=== PATIENT | male | born 1995 | race Two or more races ===

== ENCOUNTER 2020-05-17 13:34 | Emergency (ER) | payer BC, OTHER ==
[~2020-05-17] VITALS: Ht 182.9 cm; Wt 81.6 kg
[2020-05-17 13:47] VITALS: BP 152/78
[2020-05-17] MEDS ORDERED: IBUPROFEN 800 MG TAB PO ONE (15:15)
== END 2020-05-17 15:37 | disposition home or self-care (01) ==
LOC: ER 13:34
DX: S90.852A Superficial foreign body, left foot, initial encounter (principal); S90.851A Superficial foreign body, right foot, initial encounter; W45.8XXA Other foreign body or object entering through skin, initial encounter; Y93.89 Activity, other specified; Y92.89 Other specified places as the place of occurrence of the external cause; Y99.8 Other external cause status
CPT/HCPCS: 10120

== ENCOUNTER 2021-03-30 22:28 | Emergency (ER) | payer BC, MEDICAID ==
[~2021-03-30] VITALS: Ht 172.7 cm; Wt 85.7 kg
[2021-03-31 02:00] VITALS: BP 129/56
== END 2021-03-31 05:29 | disposition home or self-care (01) ==
LOC: EDBD 22:28 → ER 22:29
DX: T40.601A Poisoning by unspecified narcotics, accidental (unintentional), initial encounter (principal); Z88.0 Allergy status to penicillin; Y92.89 Other specified places as the place of occurrence of the external cause
CPT/HCPCS: 71045; 93005

== ENCOUNTER 2021-10-21 21:16 | Emergency (ER) | payer MEDICAID ==
[~2021-10-21] VITALS: Ht 185.4 cm; Wt 81.6 kg
[2021-10-22 01:25] VITALS: BP 150/92
== END 2021-10-22 02:28 | disposition home or self-care (01) ==
LOC: ER 21:19
DX: S92.324A Nondisplaced fracture of second metatarsal bone, right foot, initial encounter for closed fracture (principal); S80.811A Abrasion, right lower leg, initial encounter; F12.10 Cannabis abuse, uncomplicated; Z88.0 Allergy status to penicillin; W22.8XXA Striking against or struck by other objects, initial encounter; Y93.89 Activity, other specified; Y99.8 Other external cause status; Y92.89 Other specified places as the place of occurrence of the external cause
CPT/HCPCS: 29515; 73630

== ENCOUNTER 2021-11-03 13:27 | Emergency (ER) | payer MEDICAID ==
[~2021-11-03] VITALS: Ht 182.9 cm; Wt 81.6 kg
[2021-11-03] MEDS ORDERED: ONDANSETRON ODT 4 MG TAB PO ONE (14:15)
[2021-11-03 14:51] VITALS: BP 134/87
== END 2021-11-03 14:53 | disposition left against medical advice (07) ==
LOC: ER 13:27 → EDBD 13:27 → ER 14:53
DX: T40.411A Poisoning by fentanyl or fentanyl analogs, accidental (unintentional), initial encounter (principal); Z88.0 Allergy status to penicillin; Y92.89 Other specified places as the place of occurrence of the external cause
CPT/HCPCS: 99283; Q0162

== ENCOUNTER 2022-12-31 11:24 | Emergency (ER) | payer MEDICAID ==
[~2022-12-31] VITALS: Ht 182.9 cm; Wt 83.6 kg
[2022-12-31 11:50] VITALS: BP 133/74
== END 2022-12-31 12:13 | disposition home or self-care (01) ==
LOC: ER 11:24
DX: S01.01XD Laceration without foreign body of scalp, subsequent encounter (principal); Z88.0 Allergy status to penicillin; X58.XXXD Exposure to other specified factors, subsequent encounter

== ENCOUNTER 2024-12-06 22:06 | Emergency (ER) | payer MEDICAID ==
[~2024-12-06] VITALS: Ht 182.9 cm; Wt 77.3 kg
[~2024-12-06 22:06] MED LIST: NALO4SPR2
--- NOTE | 2024-12-06 22:32 | ED.PDOC ---
History of Present Illness HPI Comments 29 year old male presents to the ED with a chief complaint of overdose onset today (12/06/24) about 1.5 hours ago. Patient states he took Fentanyl pill, was sitting on the couch and he recalls his mom yelling at him to wake up. Patient states his mother noticed he passed out, hit his chest 2 times and patient reacted. He also states he has been taking Fentanyl for the past 3 days. Denies any PMHx as well as chest pain, shortness of breath, dizziness, nausea, vomiting, diarrhea. No other symptoms or modifying factors present at this time. Chief Complaint: Overdose Time Seen by MD: 22:20 Primary Care Provider: NONE Reviewed Notes: Medications, Allergies Allergies: Coded Allergies: Penicillins (Verified Allergy, Unknown, 05/17/20) Home Meds Active Scripts Naloxone HCl (Narcan) 4 Mg/0.1 Ml Spr, 4 MG NA ONCE PRN, #1 SPRAY Prov:DORYS SO DO 01/05/24 Information Source: Patient Mode of Arrival: Ambulatory Severity: Moderate Timing: Hours Duration: Since onset Prehospital treatment: None Past Medical History PAST MEDICAL HISTORY: Denies Surgical History: Denies all surgeries Family History Family History: Family hx of DM, Family hx of Cancer Social History Smoker: Non-Smoker Alcohol: Occasionally Drugs: Marijuana, Other Lives In: Home Constitutional: denies: chills, diaphoresis, fatigue, fever, malaise, sweats, weakness, others EENTM: denies: blurred vision, double vision, ear bleeding, ear discharge, ear drainage, ear pain, ear ringing, eye pain, eye redness, hearing loss, mouth pain, mouth swelling, nasal discharge, nose bleeding, nose congestion, nose pain, photophobia, tearing, throat pain, throat swelling, voice changes, others Respiratory: denies: cough, hemoptysis, orthopnea, SOB at rest, shortness of breath, SOB with excertion, stridor, wheezing, others Cardiovascular: denies: chest pain, dizzy spells, diaphoresis, Dyspnea on exertion, edema, irregular heart beat, left arm pain, lightheadedness, palpitations, PND, syncope, others Gastrointestinal: denies: abdomen distended, abdominal pain, blood streaked bowels, constipated, diarrhea, dysphagia, difficulty swallowing, hematemesis, melena, nausea, poor appetite, poor fluid intake, rectal bleeding, rectal pain, vomiting, others Genitourinary: denies: burning, dysuria, flank pain, frequency, hematuria, incontinence, penile discharge, penile sore, pain, testicle pain, testicle swelling, urgency, others Neurological: reports: others (overdose); denies: dizziness, fainting, headache, left sided numbness, left sided weakness, numbness, paresthesia, pre- existing deficit, right sided numbness, right sided weakness, seizure, speech problems, tingling, tremors, weakness Musculoskeletal: denies: back pain, gout, joint pain, joint swelling, muscle pain, muscle stiffness, neck pain, others Integumetry: denies: bruises, change in color, change in hair/nails, dryness, laceration, lesions, lumps, rash, wounds, others Allergic/Immunocompromised: denies: Difficulty Healing, Frequent Infections, Hives, Itching, others Hematologic/Lymphatic: denies: anemia, blood clots, easy bleeding, easy bruising, swollen glands, others Endocrine: denies: excessive hunger, excessive sweating, excessive thirst, excessive urination, flushing, intolerance to cold, intolerance to heat, unexplained weight gain, unexplained weight loss, others Psychiatric: denies: anxiety, bipolar disorder, depression, hopeless, panic disorder, schizophrenia, sleepless, suicidal, others All Other Systems: Reviewed and Negative Physical Exam General Appearance: No Apparent Distress, Normal HEENT: Normal ENT Inspection, Pharynx Normal, TMs Normal Neck: Full Range of Motion, Non-Tender, Normal, Normal Inspection Respiratory: Chest Non-Tender, Lungs Clear, No Accessory Muscle Use, No Respiratory Distress, Normal Breath Sounds Cardiovascular: No Edema, No JVD, No Murmur, No Gallop, Normal Peripheral Pulses, Regular Rate/Rhythm Breast Exam: Deferred Gastrointestinal: No Organomegaly, Non Tender, No Pulsatile Mass, Normal Bowel Sounds, Soft Genitalia: Deferred Pelvic: Deferred Rectal: Deferred Extremities: No calf tenderness, Normal capillary refill, Normal inspection, Normal range of motion, Non-tender, No pedal edema Musculoskeletal : Apperance: Normal Neurologic: Alert, 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 Was a procedure done?: No Differential Dx Considerations may include: Polysubstance abuse X-Ray, Labs, Meds, VS Vital Signs Date Time Temp Pulse Resp B/P (MAP) Pulse Ox O2 Delivery O2 Flow Rate FiO2 12/06/24 22:23 97.5 87 14 117/72 (87) 95 Lab Test 12/06/24 22:40 Range/Units White Blood Count 9.2 4.4-10.8 10^3/uL Red Blood Count 4.42 L 4.5-5.90 10^6/uL Hemoglobin 13.7 13.5-17.5 g/dL Hematocrit 41.2 41.0-53.0 % Mean Corpuscular Volume 93.2 80.0-100.0 fL Mean Corpuscular Hemoglobin 30.9 28.0-32.0 pg Mean Corpuscular Hemoglobin Concent 33.2 32.0-36.0 g/dL Red Cell Distribution Width 14.7 H 11.8-14.3 % Platelet Count 399 140-450 10^3/uL Mean Platelet Volume 6.8 L 6.9-10.8 fL Neutrophils (%) (Auto) 53.2 37.0-80.0 % Lymphocytes (%) (Auto) 26.4 10.0-50.0 % Monocytes (%) (Auto) 13.3 H 0.0-12.0 % Eosinophils (%) (Auto) 6.1 0.0-7.0 % Basophils (%) (Auto) 1.0 0.0-2.0 % Neutrophils # (Auto) 4.9 1.6-8.6 10 ^3/uL Lymphocytes # (Auto) 2.4 0.4-5.4 10 ^3/uL Monocytes # (Auto) 1.2 0-1.3 10 ^3/uL Eosinophils # (Auto) 0.6 0-0.8 10 ^3/uL Basophils # (Auto) 0.1 0-0.2 10 ^3/uL Nucleated Red Blood Cells 0.0 % Sodium Level 142 136-145 mmol/L Potassium Level 3.9 3.5-5.1 mmol/L Chloride Level 104 98-107 mmol/L Carbon Dioxide Level 31 20-31 mmol/L Anion Gap 7 5-15 Blood Urea Nitrogen 10 9-23 mg/dL Creatinine 0.82 0.700-1.30 mg/dL Glomerular Filtration Rate Calc 123 >90 mL/min BUN/Creatinine Ratio 12.2 10.0-20.0 Serum Glucose 86 74-106 mg/dL Calcium Level 10.5 H 8.7-10.4 mg/dL Time of 1ST Reevaluation: 22:50 Reevaluation 1ST: Unchanged Patient Education/Counseling: Diagnosis, Treatment, Prognosis Family Education/Counseling: No Family Present Additional Information The following tests were ordered, and results were reviewed by me: BMP, CBC I discussed treatment and results with medical personnel and: patient Departure 1 Departure Time of Disposition: 23:55 (Patient workup is benign. Monitoring patient and he seems to be doing well. We will discharge patient home with outpatient follow up) Impression: Primary Impression: Opiate overdose Qualified Codes: T40.601A - Poisoning by unspecified narcotics, accidental (unintentional), initial encounter Disposition: HOME / SELF CARE / HOMELESS Condition: Stable Additional Instructions: Do not use drugs. There are resources to help you quit. You can call: 9-329-286-[employer] (5160) If your symptoms worsen or you have any other concerns please return to the emergency room. Discharged With: Self Critical Care Note Critical Care Time?: No Stability Stability form required: No I personally scribed for LAMAR TORRES MD ([email or web address]) on 12/06/24 at 22:32. Electronically submitted by Tiffany Goldman ([email or web address]). I personally scribed for LAMAR TORRES MD ([email or web address]) on 12/06/24 at 22:44. Electronically submitted by Tiffany Goldman ([email or web address]). I personally scribed for LAMAR TORRES MD ([email or web address]) on 12/06/24 at 22:57. Electronically submitted by Tiffany Goldman ([email or web address]). LAMAR TORRES MD Dec 06, 2024 22:32
[2024-12-06 22:56] LABS: Basophils # (auto) 0.1 10 ^3/uL (0-0.2); Eosinophils # (auto) 0.6 10 ^3/uL (0-0.8); Eosinophils % (auto) 6.1 % (0.0-7.0); Hematocrit 41.2 % (41.0-53.0); Hemoglobin 13.7 g/dL (13.5-17.5); Lymphocytes # (auto) 2.4 10 ^3/uL (0.4-5.4); Lymphocytes % (auto) 26.4 % (10.0-50.0); Mean Corpuscular Hemoglobin 30.9 pg (28.0-32.0); Mean Corpuscular Hgb Conc. 33.2 g/dL (32.0-36.0); Mean Corpuscular Volume 93.2 fL (80.0-100.0); Monocytes # (auto) 1.2 10 ^3/uL (0-1.3); Monocytes % (auto) 13.3 % (0.0-12.0); Neutrophils # (auto) 4.9 10 ^3/uL (1.6-8.6); Neutrophils % (auto) 53.2 % (37.0-80.0); Platelet Count (auto) 399 10^3/uL (140-450); Red Blood Cells 4.42 10^6/uL (4.5-5.90); Red Cell Distribution Width 14.7 % (11.8-14.3); White Blood Cell 9.2 10^3/uL (4.4-10.8)
[2024-12-06 22:59] LABS: Chloride 104 mmol/L (98-107); Potassium 3.9 mmol/L (3.5-5.1); Sodium 142 mmol/L (136-145)
[2024-12-06 23:00] LABS: Anion Gap 7 (5-15)
[2024-12-06 23:05] LABS: BUN/Creatinine Ratio 12.2 (10.0-20.0); Blood Urea Nitrogen 10 mg/dL (9-23); Glucose 86 mg/dL (74-106)
[2024-12-06 23:15] LABS: Calcium 10.5 mg/dL (8.7-10.4); Carbon Dioxide 31 mmol/L (20-31)
[2024-12-07 00:19] VITALS: BP 133/73; PULSE 90; RESP 18; TEMP 98; O2SAT 99
== END 2024-12-07 00:20 | disposition home or self-care (01) ==
LOC: ER 22:06
DX: T40.601A Poisoning by unspecified narcotics, accidental (unintentional), initial encounter (principal); Z88.0 Allergy status to penicillin; Y92.89 Other specified places as the place of occurrence of the external cause
CPT/HCPCS: 36415; 80048; 85025